=== PATIENT | female | born 1955 | race Caucasian/White ===

== ENCOUNTER 2019-02-18 08:29 | Outpatient (CLI) | payer OTHER ==
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
== END 2019-02-18 08:30 | disposition home or self-care (01) ==
LOC: SCSRAD 08:29
PROVIDERS: ATTEND Family Medicine
DX: R07.89 Other chest pain (principal)

== ENCOUNTER 2021-04-06 09:26 | Outpatient (CLI) | payer MEDICARE, OTHER | END 2021-04-06 09:27 | disposition home or self-care (01) | LOC: NM 09:26 | PROVIDERS: ATTEND Internal Medicine Critical Care Medicine | DX: I26.99 Other pulmonary embolism without acute cor pulmonale (principal); J98.4 Other disorders of lung | CPT/HCPCS: 71046; 78451; A9540 ==

== ENCOUNTER 2022-02-16 13:08 | Outpatient (CLI) | payer MEDICARE, OTHER ==
[2022-02-16 16:49] LABS: #Basophils 0.1 thou/uL (0.0-0.2); #Eosinphils 0.1 thou/uL (0.0-0.7); #Lymphocytes 2.6 thou/uL (1.20-3.40); #Monocytes 0.3 thou/uL (0.11-0.59); #Neutrophils 3.2 thou/uL (1.40-6.50); %Basophils 0.9 % (0.0-1.0); %Eosinophils 1.9 % (0.0-10.0); %Lymphocytes 40.5 % (21.0-51.0); %Monocytes 5.3 % (0.0-10.0); %Neutrophils 51.3 % (42.0-75.0); Mean Corpuscular HGB CONC 32.3 g/dL (32.0-36.0); Mean Corpuscular Hemoglobin 30.1 pg (27.0-31.0); Mean Corpuscular Volume 93.4 fL (78.0-98.0); Mean Platelet Volume 10.4 fL (7.4-10.4); Platelet Count 195 thou/uL (130-400); Red Blood Cell (RBC) Count 4.65 mill/uL (4.20-5.40); White Blood Cell (WBC) Count 6.3 thou/uL (4.8-10.8)
[2022-02-16 18:18] LABS: ALT (SGPT) 11 U/L (8-55); AST (SGOT) 14 U/L (5-34); Albumin 4.2 g/dL (3.4-4.8); Alkaline Phosphatase 125 U/L (40-110); Anion Gap 17 mmol/L (10-20); BUN (Urea Nitrogen) 15 mg/dL (9.8-20.1); Bilirubin, Total 0.6 mg/dL (0.2-1.2); Calc. Creatinine Clearance 0 mL/min (70-130); Calcium 9.5 mg/dL (7.8-10.44); Carbon Dioxide 22 mmol/L (23-31); Chloride 107 mmol/L (98-107); Estimated GFR 97; Globulin 2.4 g/dL (2.4-3.5); Glucose 94 mg/dL (80-115); Potassium 4.7 mmol/L (3.5-5.1); Protein, Total 6.6 g/dL (5.8-8.1); Sodium 141 mmol/L (136-145)
[2022-02-16 18:58] LABS: Free T4 (Free Thyroxine) 1.11 ng/dL (0.70-1.48)
[2022-02-16 19:19] LABS: Thyroid Stimulating Hormone 0.873 uIU/mL (0.35-4.94)
== END 2022-02-16 13:09 | disposition home or self-care (01) ==
LOC: SCSRAD 13:08
PROVIDERS: ATTEND Family Medicine
DX: J93.83 Other pneumothorax (principal); F32.9 Major depressive disorder, single episode, unspecified; W19.XXXS Unspecified fall, sequela
CPT/HCPCS: 36415; 71046; 80053; 84439; 84443; 85025